=== PATIENT | female | born 1990 | race Caucasian/White ===

== ENCOUNTER 2024-06-17 13:59 | Inpatient (IN) | payer SELFPAY ==
[~2024-06-17] VITALS: Ht 160 cm; Wt 54.4 kg
[2024-06-17 14:11] VITALS: O2SAT 100
[2024-06-17] MEDS ORDERED: SODIUM CHLORIDE 0.9% 1,000 ML IV ONE (15:15)
[2024-06-17 15:22] LABS: BASOPHILS % 0.8 % (0.0-2.0); DIFFERENTIAL COMMENT 0; EOSINOPHILS % 0.7 % (0.0-5.0); LYMPHOCYTES % 7.5 % (20.0-50.0); MEAN CORPUSCULAR HEMOGLOBIN 31.7 pg (28.0-32.0); MEAN CORPUSCULAR VOLUME 93.3 fL (81.0-99.0); MEAN PLATELET VOLUME 6.3 fl (7.4-10.4); MONOCYTES % 3.5 % (2.0-8.0); NEUTROPHILS % 87.5 % (40.0-76.0); PLATELET 595 x1000/uL (130-400); RED BLOOD CELL COUNT 2.14 mill/uL (4.2-5.4); RED CELL DISTRIBUTION WIDTH 17.5 % (11.6-14.6); WHITE BLOOD COUNT 8.3 x1000/uL (4.5-11.0)
[2024-06-17 15:27] LABS: CHLORIDE 98 mEq/L (98-107); POTASSIUM 5.6 mEq/L (3.5-5.1); SODIUM 133 mEq/L (136-145)
[2024-06-17 15:28] LABS: CALCIUM 9.5 mg/dL (8.7-10.4); CARBON DIOXIDE 32 mEq/L (21-32)
[2024-06-17 15:31] LABS: HEMATOCRIT. 19.9 % (36.0-48.0); HEMOGLOBIN. 6.8 g/dL (12.0-16.0)
[2024-06-17 15:33] LABS: CREATININE 2.9 mg/dL (0.6-1.0); GLUCOSE 130 mg/dL (70-105); UREA NITROGEN BLOOD 24 mg/dL (9-23)
[2024-06-17 15:35] LABS: ALANINE AMINOTRANSFERASE 10 IU/L (10-49); ALBUMIN 4.1 g/dL (3.2-4.8); ASPARTATE AMINOTRANSFERASE 17 IU/L (<34); BILIRUBIN DIRECT 0.6 mg/dL (<=3.0); TROPONIN I HIGH SENSITIVITY 7 ng/L (3.0-34)
[2024-06-17 15:36] LABS: BILIRUBIN TOTAL 0.9 mg/dL (0.1-1.0); PROTEIN TOTAL 6.3 g/dL (6.0-8.3)
[2024-06-17 15:43] LABS: PARTIAL THROMBOPLASTIN TIME 25.6 sec (23.4-31.0); PROTHROMBIN TIME 11.1 sec (9.6-11.0)
[2024-06-17 16:16] LABS: HCG SCREEN NEGATIVE
[2024-06-17] MEDS ORDERED: SODIUM CHLORIDE 0.9% 100 ML IV NR (16:45)
[2024-06-17 20:53] LABS: TROPONIN I HIGH SENSITIVITY 7 ng/L (3.0-34)
[2024-06-17] MEDS ORDERED: MORPHINE SULFATE 2 MG/ML INJ (NOT FOR IM USE) IV PRN (22:30)
[2024-06-17 23:31] VITALS: BP 135/65; PULSE 93; RESP 24; TEMP 36.8072
[2024-06-18] VITALS: BP 160/105; PULSE 93; RESP 19; TEMP 36.78072; O2SAT 100
[2024-06-18] MEDS ORDERED: CARV6.2548 PO (00:34)
[2024-06-18] MEDS ORDERED: CALC0.253 PO (00:34)
[2024-06-18] MEDS ORDERED: ACYC200C31 PO (00:34)
[2024-06-18] MEDS ORDERED: PROT40 PO (00:35)
[2024-06-18] MEDS ORDERED: MAGN400T26 PO (00:38)
[2024-06-18] MEDS ORDERED: INSU100I28 SQ (00:38)
[2024-06-18] MEDS ORDERED: INSU100V40 (00:38)
[2024-06-18] MEDS ORDERED: MELA3TAB40 PO (00:41)
[2024-06-18] MEDS ORDERED: METH-773 PO (00:41)
[2024-06-18] MEDS ORDERED: OLAN2.5T3 PO (00:47)
[2024-06-18] MEDS ORDERED: DOXY150T8 MT (00:47)
[2024-06-18] MEDS ORDERED: TACR1CAP2 PO (00:47)
[2024-06-18] MEDS ORDERED: METH-653 GT (00:47)
[2024-06-18] MEDS ORDERED: SULF1TAB47 MT (00:47)
[2024-06-18] MEDS ORDERED: FOLI0.8T53 MT (00:47)
[2024-06-18] MEDS ORDERED: PANT40TA51 PO (00:47)
[2024-06-18] MEDS ORDERED: FLUC100T42 MT (00:47)
[2024-06-18] MEDS ORDERED: PRED5TAB PO (00:47)
[2024-06-18] MEDS ORDERED: MORPHINE SULFATE 2 MG/ML INJ (NOT FOR IM USE) IV PRN (01:45)
[2024-06-18] MEDS ORDERED: ONDANSETRON HCL 4MG/2ML INJ IV PRN (01:45)
[2024-06-18] MEDS ORDERED: IPRATROPIUM/ALBUTEROL 0.5-3(2.5)MG/3ML NEB HHN PRN (01:45)
[2024-06-18] MEDS ORDERED: ZOLPIDEM TARTRATE 5MG TABLET PO PRN (01:45)
[2024-06-18] MEDS ORDERED: NALOXONE HCL 0.4MG/ML VIAL IV PRN (02:00)
[2024-06-18 04:00] VITALS: BP 127/84; PULSE 98; RESP 20; TEMP 36.89184; O2SAT 97
[2024-06-18] MEDS ORDERED: DEXTROSE 50% WATER 50ML SYRINGE IV PRN (06:45)
[2024-06-18] MEDS: BLOOD SUGAR DIAGNOSTIC STRIP TEST SCH ×2 (06:45→07:53)
[2024-06-18 07:18] LABS: POTASSIUM 5.1 mEq/L (3.5-5.1)
[2024-06-18 07:20] LABS: CALCIUM 9.6 mg/dL (8.7-10.4)
[2024-06-18 07:24] LABS: CREATININE 3.4 mg/dL (0.6-1.0)
[2024-06-18 07:39] LABS: HEPATITIS B SURFACE ANTIGEN NEGATIVE (Negative)
[2024-06-18 07:41] LABS: BASOPHILS % 1.1 % (0.0-2.0); EOSINOPHILS % 2.8 % (0.0-5.0); HEMATOCRIT. 22.2 % (36.0-48.0); HEMOGLOBIN. 7.5 g/dL (12.0-16.0); LYMPHOCYTES % 25.1 % (20.0-50.0); MEAN CORPUSCULAR HEMOGLOBIN 30.7 pg (28.0-32.0); MEAN CORPUSCULAR HGB CONC 33.7 g/dL (31.0-37.0); MEAN CORPUSCULAR VOLUME 90.9 fL (81.0-99.0); MEAN PLATELET VOLUME 6.5 fl (7.4-10.4); MONOCYTES % 12.9 % (2.0-8.0); NEUTROPHILS % 58.1 % (40.0-76.0); PLATELET 554 x1000/uL (130-400); RED BLOOD CELL COUNT 2.44 mill/uL (4.2-5.4); WHITE BLOOD COUNT 7.3 x1000/uL (4.5-11.0)
[2024-06-18] MEDS: INSULIN LISPRO 100 UNITS/ML SUBCUT SCH (07:50)
[2024-06-18 08:00] VITALS: BP 133/76; PULSE 76; RESP 18; TEMP 36.44736; O2SAT 97
[2024-06-18 08:00] LABS: HEPATITIS C AB NON REACTIVE (Neg) (Negative)
[2024-06-18] MEDS ORDERED: TACROLIMUS 1MG CAPSULE PO SCH (10:30)
[2024-06-18] MEDS ORDERED: INSULIN GLARGINE 100 UNITS/ML SUBCUT SCH (22:00)
== END 2024-06-18 10:20 | disposition left against medical advice (07) | DRG 190 ==
LOC: ER 13:59 → EDBEDREQ 15:06 → 6WST 20:44 → EDBEDREQSVC 20:48 → EDBEDREQTM 20:48 → EDBEDREQ 20:48 → ER 23:06
PROVIDERS: ADMIT Internal Medicine; ATTEND Internal Medicine
PROC: 30233N1 Transfusion of Nonautologous Red Blood Cells into Peripheral Vein, Percutaneous Approach (ICD-10-PCS; principal; 2024-06-17)
DX: I21.4 Non-ST elevation (NSTEMI) myocardial infarction (principal); J96.01 Acute respiratory failure with hypoxia; I12.0 Hypertensive chronic kidney disease with stage 5 chronic kidney disease or end stage renal disease; J90 Pleural effusion, not elsewhere classified; E11.22 Type 2 diabetes mellitus with diabetic chronic kidney disease; D64.9 Anemia, unspecified; E87.70 Fluid overload, unspecified; I20.0 Unstable angina; N18.6 End stage renal disease; Z99.2 Dependence on renal dialysis; Z94.4 Liver transplant status; K70.30 Alcoholic cirrhosis of liver without ascites; E87.5 Hyperkalemia
CPT/HCPCS: 36415; 71045; 80048; 80076; 82962; 83036; 83880; 84484; 84703; 85025; 86705; 86850; 86900; 86920; 87340; 93005; 99291; J7030; J7507; P9016